=== PATIENT | male | born 1940 | race Two or more races ===

== ENCOUNTER → 2023-03-21 | Day surgery (SDC) | payer OTHER ==
[~2023-03-21] VITALS: Ht 175.3 cm; Wt 83.9 kg
[~2023-03-21] MED LIST: AMLODIPINE-OLM1 EAC3 PO; LOSARTAN-HCTZ1 EAC2 PO; TENORMIN50 M1 PO; TRAMADOL HCL50 MG PO
== END | disposition home or self-care (01) ==
LOC: ADM 03-16 10:45 → CIR.AMB 06:19
PROVIDERS: ATTEND Surgery
DX: N52.01 Erectile dysfunction due to arterial insufficiency (principal); Z20.822 Contact with and (suspected) exposure to COVID-19; I10 Essential (primary) hypertension; F17.210 Nicotine dependence, cigarettes, uncomplicated
CPT/HCPCS: 54405; C1813

== ENCOUNTER 2025-03-24 00:50 | Emergency (ER) | payer OTHER ==
[~2025-03-24] VITALS: Ht 177.8 cm; Wt 81.6 kg
[2025-03-24 04:24] LABS: URINE APPEARANCE Error; URINE BILIRRUBIN Moderate (NEGATIVE); URINE BLOOD Moderate; URINE COLOR Red; URINE GLUCOSE Negative (NEGATIVE); URINE KETONE Negative (NEGATIVE); URINE LEUKOCYTE Moderate; URINE NITRATE Positive; URINE UROBILINOGEN 0.2 E.U./dl
[2025-03-24 04:28] LABS: URINE BACTERIA 698.3 uL (0.0-1933); URINE EPITHELIAL CELLS 42.7 uL (0.0-38.8); URINE WBC 140.1 uL (0.0-23.2)
[2025-03-24 04:37] LABS: BASO % 0.5 % (0.1-1.2); EOS # 0.08 (0.04-0.54); EOS % 1.3 % (0.7-7.0); LYMPH # 1.08 (1.18-3.74); LYMPH % 16.9 % (19.3-53.1); MEAN PLATELET VOLUME 11.30 fl (9.4-12.4); MONO # 0.25 (0.24-0.82); MONO % 3.9 % (4.7-12.5); NEUT # 4.94 (1.56-6.13); NEUT % 77.2 % (34.0-71.1); RED CELL DISTRIBUTION WIDTH 18.6 % (11.6-14.4)
[2025-03-24 04:48] LABS: URINE PROTEIN 100 (NEGATIVE); URINE RBC > 10558.9 uL (0.0-20.8)
[2025-03-24 04:49] LABS: URINE CAST 0.00 uL (0.0-1.40)
[2025-03-24] MEDS ORDERED: CIPROFLOXACIN IN 5 % DEXTROSE 400 MG/200 ML PIGGYBAG IV STA (05:02)
== END 2025-03-24 07:56 | disposition home or self-care (01) ==
LOC: ER 01:14
DX: R31.0 Gross hematuria (principal); N39.0 Urinary tract infection, site not specified